=== PATIENT | female | born 1980 | race Caucasian/White ===

== ENCOUNTER 2024-11-26 09:32 | Emergency (ER) | payer OTHER ==
[~2024-11-26] VITALS: Ht 162.6 cm; Wt 81.4 kg
[2024-11-26] MEDS ORDERED: KETO10TAB PO (09:44)
[2024-11-26] MEDS ORDERED: BENZ150C5 PO (09:44)
[2024-11-26] MEDS ORDERED: SYNT112T2 PO (09:51)
[2024-11-26 11:52] LABS: BASO % 0.5 % (0.0-1.0); EOS # 0.2 10^3/uL (0.0-0.5); EOS % 2.3 % (0.0-3.0); HEMATOCRIT 41.7 % (36.0-47.0); HEMOGLOBIN 13.6 g/dl (12.0-15.5); LYMPH % 24.1 % (24.0-44.0); MEAN CORPUSCULAR HEMOGLOBIN 29.5 pg (27.0-33.0); MEAN CORPUSCULAR HGB CONC 32.6 g/dl (32.0-36.5); MEAN CORPUSCULAR VOLUME 90.5 fl (80.0-96.0); MONO # 0.5 10^3/uL (0.0-0.8); MONO % 6.2 % (2.0-8.0); NEUTROPHILS # 5.6 10^3/uL (1.5-8.5); NEUTROPHILS % 66.5 % (36.0-66.0); PLATELET COUNT, AUTOMATED 325 10^3/uL (150-450); RED BLOOD COUNT 4.61 10^6/uL (4.00-5.40); WHITE BLOOD COUNT 8.4 10^3/uL (4.0-10.0)
[2024-11-26] MEDS: ACETAMINOPHEN 500 MG TAB PO ONE (11:54)
[2024-11-26] MEDS: KETOROLAC 30 MG/ML 1ML VIAL IV ONE (11:54)
[2024-11-26] MEDS: LIDOCAINE 5% (LIDODERM) PATCH TD ONE (11:55)
[2024-11-26] MEDS: METHOCARBAMOL 1,000 MG/10 ML VIAL IV ONE (11:55)
[2024-11-26 12:22] LABS: BLOOD UREA NITROGEN 13 MG/DL (9-23); CALCIUM LEVEL 9.8 MG/DL (8.5-10.1); CARBON DIOXIDE LEVEL 26 MMOL/L (20-31); CHLORIDE LEVEL 108 MMOL/L (98-107); CREATININE FOR GFR 0.72 MG/DL (0.55-1.30); GLOMERULAR FILTRATION RATE > 60.0 (>58); GLUCOSE, FASTING 86 MG/DL (60-100); POTASSIUM SERUM 4.1 MMOL/L (3.5-5.1); SODIUM LEVEL 143 MMOL/L (136-145)
[2024-11-26] MEDS ORDERED: ISOVUE-370 76% 100ML VIAL As Ordered ONE (12:46)
[2024-11-26 13:06] VITALS: O2SAT 90
[2024-11-26] MEDS ORDERED: AZIT-12 PO (14:39)
[2024-11-26] MEDS ORDERED: LIDO5DIS41 TOP (14:53)
[2024-11-26 15:01] VITALS: BP 136/76; TEMP 97.8; O2SAT 97
== END 2024-11-26 15:05 | disposition home or self-care (01) ==
LOC: M ED 09:32
DX: J20.9 Acute bronchitis, unspecified (principal); S22.31XA Fracture of one rib, right side, initial encounter for closed fracture; Y92.9 Unspecified place or not applicable; Y93.9 Activity, unspecified; Y99.9 Unspecified external cause status; E06.9 Thyroiditis, unspecified; Z87.891 Personal history of nicotine dependence; Z88.5 Allergy status to narcotic agent; Z91.048 Other nonmedicinal substance allergy status; Z79.2 Long term (current) use of antibiotics; Z79.899 Other long term (current) drug therapy
CPT/HCPCS: 71046; 71260; 80048; 85025; 87486; 87581; 87633; 87798; 87880; 96374; 96375; 99284; J1885; J2800; Q9967

== ENCOUNTER 2025-04-09 07:02 | Day surgery (SDC) | payer OTHER ==
[~2025-04-09] VITALS: Ht 162.6 cm; Wt 85.7 kg
[~2025-04-09 07:02] MED LIST: AZIT-12 PO; BENZ150C5 PO; KETO10TAB PO; LIDO5DIS41 TOP; SYNT112T2 PO
[2025-04-09] MEDS ORDERED: LIDOCAINE 2% 100MG/5ML SDV (FOR ANES.) As Ordered ONE (08:02)
[2025-04-09] MEDS ORDERED: propofoL 200 MG/20 ML VIAL As Ordered ONE (08:02)
[2025-04-09] MEDS ORDERED: ONDANSETRON 4MG 2ML VIAL As Ordered ONE (08:02)
[2025-04-09] MEDS ORDERED: ePHEDrine SULFATE 25 MG/5 ML(5MG/ML) SYRINGE As Ordered ONE (08:09)
[2025-04-09] MEDS ORDERED: GLYCOPYRROLATE INJ 0.2 MG/ML 2 ML VIAL As Ordered ONE (08:31)
[2025-04-09 09:23] VITALS: BP 141/88; O2SAT 99
== END 2025-04-09 09:43 | disposition home or self-care (01) ==
LOC: M OPP 07:02
PROVIDERS: ATTEND Internal Medicine Gastroenterology
DX: K59.00 Constipation, unspecified (principal); D12.3 Benign neoplasm of transverse colon; D12.2 Benign neoplasm of ascending colon; K57.30 Diverticulosis of large intestine without perforation or abscess without bleeding; K76.0 Fatty (change of) liver, not elsewhere classified; K21.9 Gastro-esophageal reflux disease without esophagitis; Z90.49 Acquired absence of other specified parts of digestive tract; E06.3 Autoimmune thyroiditis; E89.0 Postprocedural hypothyroidism; Z92.3 Personal history of irradiation; Z79.890 Hormone replacement therapy; Z90.710 Acquired absence of both cervix and uterus; Z88.5 Allergy status to narcotic agent; Z91.048 Other nonmedicinal substance allergy status; Z87.891 Personal history of nicotine dependence
CPT/HCPCS: 45380; 45385; 88305; J1596; J2405